=== PATIENT | male | born 1965 | race Caucasian/White ===

== ENCOUNTER → 2016-11-28 | Outpatient (CLI) | payer OTHER ==
[~2016-11-28] MED LIST: No meds per pt.; ONDA4TAB10 SL; OXYC-302 PO
== END | disposition home or self-care (01) ==
LOC: ROC 11:12
PROVIDERS: ATTEND Radiology Radiation Oncology
DX: C01 Malignant neoplasm of base of tongue (principal); Z88.0 Allergy status to penicillin; Z92.3 Personal history of irradiation; Z92.21 Personal history of antineoplastic chemotherapy
CPT/HCPCS: 99212; G0463

== ENCOUNTER → 2017-07-18 | Outpatient (CLI) | payer OTHER | LOC: ROC 08:23 | PROVIDERS: ATTEND Radiology Radiation Oncology | DX: Z08 Encounter for follow-up examination after completed treatment for malignant neoplasm (principal); C10.8 Malignant neoplasm of overlapping sites of oropharynx | CPT/HCPCS: 99212; G0463 ==